=== PATIENT | female | born 1970 | race Caucasian/White ===

== ENCOUNTER → 2016-08-28 | Outpatient (CLI) | payer OTHER ==
[~2016-08-28] MED LIST: ATV1HP; BUPR-269 PO; CHOL100027 PO; ENOX40IN SQ; LEVO100T PO; LEVO125T4 PO; LORA-741 PO; PARO1TAB29 PO; PRED20TA PO; WARF-246 PO; WARF-280 PO; WARF5TAB7 PO; WARF6TAB5 PO; ZOLP10TA6 PO; ZOLP5TAB PO
--- NOTE | 2016-08-28 11:25 | DIAGNOSTIC IMAGING REPORT ---
RIGHT LOWER EXTREMITY VENOUS DOPPLER HISTORY: I83.10 Varicose veins with inflammation right leg Right COMPARISON STUDY: None. FINDINGS: Linear echogenic stranding within the right popliteal vein consistent with nonocclusive chronic thrombus. Otherwise, the remaining deep venous structures within the right lower extremity are patent. IMPRESSION: Nonocclusive chronic thrombus within the right popliteal vein. No acute DVT within the right lower extremity Electronically signed by: Brandt Bermudez M.D. 08/28/2016 11:24 AM Dictated Date/Time: 08/28/2016 11:23 AM
== END | disposition home or self-care (01) ==
LOC: C.ULTRBC 10:44
PROVIDERS: ATTEND Internal Medicine Geriatric Medicine
DX: I83.10 Varicose veins of unspecified lower extremity with inflammation (principal); I82.531 Chronic embolism and thrombosis of right popliteal vein

== ENCOUNTER → 2016-09-06 | Outpatient (CLI) | payer OTHER | END | disposition home or self-care (01) | LOC: C.PATHSPEC 17:00 | PROVIDERS: ATTEND Plastic Surgery | DX: L72.0 Epidermal cyst (principal) ==

== ENCOUNTER → 2016-09-14 | Outpatient (CLI) | payer OTHER ==
[~2016-09-14] MED LIST changes: -LEVO125T4 PO; +LEVO125T5 PO; +TAMS0.4C38 PO
== END | disposition home or self-care (01) ==
LOC: C.PATHSPEC 17:19
PROVIDERS: ATTEND Plastic Surgery
DX: L90.5 Scar conditions and fibrosis of skin (principal)

== ENCOUNTER → 2016-11-13 | Outpatient (CLI) | payer OTHER ==
--- NOTE | 2016-11-13 13:06 | DIAGNOSTIC IMAGING REPORT ---
RIGHT LOWER EXTREMITY VENOUS DOPPLER CLINICAL HISTORY: Follow up study. Deep venous thrombus. COMPARISON STUDY: Right lower extremity venous Doppler August 28, 2016. TECHNIQUE: Sonography of the deep venous system of the right lower extremity was performed. Compression and augmentation were evaluated. FINDINGS: There is linear echogenic material within the right femoral and popliteal veins. In addition, there is wall thickening of the right popliteal vein. These findings appear increased since exam of August 28, 2016 and are age indeterminate. No expanded vessels are present. IMPRESSION: 1. Age indeterminate deep venous thrombus within the right popliteal vein which appears increased since exam of August 28, 2016 and therefore may reflect minimal interval thrombus formation. 2. Increase in extent in linear echogenic material within the right deep venous system. Although this appears chronic, the extent has increased since exam of August 28, 2016. Electronically signed by: Jim Ansari M.D. 11/13/2016 1:05 PM Dictated Date/Time: 11/13/2016 12:57 PM
== END | disposition home or self-care (01) ==
LOC: C.ULTRBC 12:06
PROVIDERS: ATTEND Physician Assistant Medical
DX: I82.501 Chronic embolism and thrombosis of unspecified deep veins of right lower extremity (principal)

== ENCOUNTER → 2016-11-27 | Outpatient (CLI) | payer OTHER ==
[~2016-11-27] MED LIST changes: -BUPR-269 PO; -LEVO125T5 PO; -PARO1TAB29 PO
--- NOTE | 2016-11-27 14:19 | DIAGNOSTIC IMAGING REPORT ---
LEFT HUMERUS MIN 2 VIEWS ROUTINE CLINICAL HISTORY: M79.603 Arm [id number] pain COMPARISON: None. DISCUSSION: The bones and joint spaces appear intact. There is no evidence of fracture, dislocation or bony disease. There is no evidence for soft tissue swelling. IMPRESSION: Negative study. Electronically signed by: Ramiro Dukes M.D. 11/27/2016 2:18 PM Dictated Date/Time: 11/27/2016 2:16 PM
--- NOTE | 2016-11-27 14:27 | DIAGNOSTIC IMAGING REPORT ---
LEFT SHOULDER 3 VIEWS HISTORY: Left arm pain. COMPARISON: Chest 09/15/2013. FINDINGS: There is no fracture or dislocation. Soft tissues are unremarkable. The left clavicle is intact. Mild AC joint arthrosis. Mild cartilage space narrowing within the glenohumeral joint. Similar appearing small bony protrusions seen along the inferior glenoid and proximal/medial shaft of the left humerus. These are stable compared to the prior studies and likely represent small osteochondromas. The lesion within the proximal humeral shaft measures 2.2 x 0.9 cm. The glenoid lesion measures 6 mm. IMPRESSION: 1. No acute fracture or dislocation within the left shoulder. 2. Mild degenerative changes. 3. Similar-appearing bony protrusions at the inferior glenoid and proximal shaft of the left humerus consistent with osteochondromas. Electronically signed by: Brandt Bermudez M.D. 11/27/2016 2:25 PM Dictated Date/Time: 11/27/2016 2:23 PM
== END | disposition home or self-care (01) ==
LOC: C.RADBC 13:52
PROVIDERS: ATTEND Physician Assistant Medical
DX: M79.602 Pain in left arm (principal)

== ENCOUNTER → 2016-12-05 | Outpatient (CLI) | payer OTHER ==
[~2016-12-05] MED LIST changes: -TAMS0.4C38 PO
== END | disposition home or self-care (01) ==
LOC: C.PAPS 11:54
PROVIDERS: ATTEND Physician Assistant Medical
DX: Z00.00 Encounter for general adult medical examination without abnormal findings (principal); Z12.4 Encounter for screening for malignant neoplasm of cervix

== ENCOUNTER → 2016-12-06 | Outpatient (CLI) | payer OTHER ==
[~2016-12-06] MED LIST changes: +OPTIRAY 320 IV PRN
--- NOTE | 2016-12-06 12:10 | DIAGNOSTIC IMAGING REPORT ---
CHEST CTA for PULMONARY ARTERIES CT DOSE: 205.77 mGy.cm HISTORY: Chest pain. Dyspnea. TECHNIQUE: Multiaxial CT images of the chest were performed following the intravenous administration of contrast to evaluate the pulmonary arteries. Maximal intensity projection images were also obtained. COMPARISON STUDY: None. FINDINGS: There is a normal caliber thoracic aorta with no evidence for dissection. There is no evidence for pulmonary embolus. No pleural effusions. No pneumothorax. The liver and spleen are unremarkable. No mediastinal or hilar lymphadenopathy. The central airways are patent. The lungs are clear. Note is made of a 4 mm nodular density anterior aspect right lower lobe transaxial image 47. Follow-up per Fleischner criteria. Please refer to below summary of Fleischner criteria recommendations for follow-up of incidental CT nodules (Jorge Luis Reed, Guidelines for management of small pulmonary nodules detected on CT scans: A statement from the Fleischner Society, Radiology 237: [phone].) SOLID NODULES Solitary nodule size: <6 mm * low risk patients: no follow-up needed * high risk patients: optional CT at 12 months Solitary nodule size: 6-8 mm * low risk patients: follow-up at 6-12 months, then consider further follow-up at 18-24 months * high risk patients: initial follow-up CT at 6-12 months and then at 18-24 months if no change Solitary nodule size: >8 mm * either low or high risk patients - consider follow-up CT at 3 months, and/or CT-PET, and/or biopsy Multiple nodules size: <6 mm * low risk patients: no routine follow-up * high risk patients: optional CT at 12 months Multiple nodules size: 6-8 mm * low risk patients: follow-up at 3-6 months, then consider further follow-up at 18-24 months * high risk patients: follow-up at 3-6 months, then at 18-24 months if no change Multiple nodules size: >8 mm * low risk patients: follow-up at 3-6 months, then consider further follow-up at 18-24 months * high risk patients: follow-up at 3-6 months, then at 18-24 months if no change Note: newly detected indeterminate nodule in persons 35 years of age or older. * Low risk patients: minimal or absent history of smoking and/or other known risk factors * high risk patients: history of smoking or of other known risk factors (e.g. first degree relative with lung cancer, or exposure to asbestos, radon, uranium) * if a nodule up to 8 mm is partly solid or is ground glass further follow-up is required after 24 months to exclude possible slow growing adenocarcinoma ([place]) SUBSOIL NODULES Solitary pure ground-glass nodule * nodule size <6 mm - no CT follow-up required * nodule size >=6 mm - follow-up CT at 6-12 months, then every 2 years until 5 years Solitary part-solid nodule * nodule size <6 mm - no CT follow-up required * nodule size >=6 mm - follow-up CT at 3-6 months. If unchanged, and solid component remains <6 mm, then annual follow-up for 5 years Multiple subsolid nodules * nodule size <6 mm - follow-up CT at 3-6 months, consider further follow-up at 2 and 4 years if stable * nodule size >=6 mm - follow-up CT at 3-6 months, subsequent management based on the most suspicious nodule(s) IMPRESSION: No evidence for pulmonary embolus. Electronically signed by: Ramiro Dukes M.D. 12/06/2016 12:09 PM Dictated Date/Time: 12/06/2016 12:04 PM
== END | disposition home or self-care (01) ==
LOC: C.CTS 11:15
PROVIDERS: ATTEND Physician Assistant Medical
DX: R07.9 Chest pain, unspecified (principal); E03.9 Hypothyroidism, unspecified

== ENCOUNTER 2017-02-06 17:09 | Emergency (ER) | payer OTHER ==
[~2017-02-06] VITALS: Ht 162.6 cm; Wt 54.7 kg
[~2017-02-06 17:09] MED LIST changes: -ENOX40IN SQ; -LORA-741 PO; -OPTIRAY 320 IV PRN; -PRED20TA PO; -WARF-246 PO; -WARF6TAB5 PO; -ZOLP10TA6 PO
[2017-02-06 17:17] VITALS: Ht 162.6 cm; Wt 54.7 kg
--- NOTE | 2017-02-06 18:55 | EMERGENCY ROOM VISIT NOTE ---
History Report prepared by Jaskaran: Erasto Joseph Under the Supervision of: Dr. Jose Alfredo Nieto M.D. First contact with patient: 18:34 Chief Complaint: LEG PAIN,LEG INJURY Stated Complaint: PAIN IN R LEG POSSIBLE BLOOD CLOT History of Present Illness The patient is a 47 year old female who presents to the Emergency Room with complaints of worsening, lower, right leg pain beginning three days ago. The patient states that she has a history of a blood clot 3 months ago. She reports that she just got back from [place], and is now experiencing right leg pain. The patient notes that her pain is in the same location as her previous blood clot and radiates slightly higher. She states that she has been on Coumadin and has not reached her correct dosage yet. The patient reports that she also has a history of MS, and she does not know if it is an MS flare or a blood clot. She notes that she experiences intermittent nausea, lightheadedness, and dizziness. The patient denies chest pain and shortness of breath. She states she has not had pain before her previous blood clot. Source of History: patient Onset: 3 days ago Position: leg (right) Timing: worsening Associated Symptoms: + nausea (intermittent), No chest pain, No SOB Note: Associated symptoms: Intermittent lightheadedness, intermittent dizziness Review of Systems See HPI for pertinent positives & negatives. A total of 10 systems reviewed and were otherwise negative. Past Medical & Surgical Medical Problems: (1) Acute Pancreatitis (2) Anemia (3) Depressive Disorder Nec (4) Hypothyroidism (5) Late Effect Of Ruffin Nec (6) Multiple Sclerosis (7) Scar & Fibrosis Of Skin Family History Patient reports no known family medical history. Social History Smoking Status: Never Smoker Drug Use: none Marital Status: Occupation Status: disabled Current/Historical Medications Scheduled Cholecalciferol (Vitamin D 1000 Unit), 4,000 INTER.UNIT PO DAILY Levothyroxine Sodium (Synthroid), 100 MCG PO DAILY Warfarin Sodium (Warfarin Sodium), 5 MG PO [id number] Warfarin Sodium (Warfarin Sodium), 7.5 MG PO WK Zolpidem Tartrate (Zolpidem Tartrate), 10 MG PO HS Scheduled PRN Lorazepam (Ativan), 0.5 MG PO DAILY PRN for Anxiety Allergies Coded Allergies: Dexamethasone (Verified Allergy, Unknown, UNKNOWN, 9/29/14) Physical Exam Vital Signs Date Time Temp Pulse Resp B/P (MAP) Pulse Ox O2 Delivery O2 Flow Rate FiO2 02/06/17 21:51 36.5 63 18 150/89 99 02/06/17 21:50 18 150/89 99 Room Air 02/06/17 19:49 99 Room Air 02/06/17 19:47 99 Room Air 02/06/17 17:17 36.5 63 18 149/76 98 Room Air Physical Exam GENERAL: Patient is a healthy-appearing well-nourished 47 year old female HEAD: Normocephalic atraumatic EYES: Ocular movements intact pupils equal and react to light OROPHARYNX mucous membranes are moist no exudates present no erythema or edema present NECK: Supple no nuchal rigidity CHEST: Good equal expansion LUNGS: Clear and equal to auscultation CARDIAC: Normal S1 and S2 ABDOMEN: Soft nontender no guarding BACK: No CVA tenderness EXTREMITIES: No pain upon palpation normal muscle strength in all groups no clubbing cyanosis or edema NEURO: Patient is following commands and answering questions appropriately. Alert and oriented x3 Cranial Nerves 2-12 grossly intact Medical Decision & Procedures ER Provider Diagnostic Interpretation: Radiology results as stated below per my review and radiologist interpretation: ULTRASOUND RIGHT VENOUS DOPP LOWER EXT UNILAT CLINICAL HISTORY: Right lower extremity pain COMPARISON STUDY: 11/13/2016 FINDINGS: There is chronic fibrin stranding within the common femoral posterior tibial and peroneal veins. There is fibrin stranding within the distal superficial femoral and popliteal veins. The distal superficial femoral and popliteal veins are not fully compressible. The appearance favors chronic DVT. Short-term follow-up would seem prudent to exclude thrombus propagation. IMPRESSION: 1. Moderately extensive chronic fibrin stranding. 2. Incompletely compressible distal superficial femoral and popliteal veins. The findings likely represent chronic nonocclusive thrombus. 3. Short-term follow-up would seem prudent to exclude thrombus propagation Electronically signed by: Levi Bryant M.D. 02/06/2017 9:10 PM Dictated Date/Time: 02/06/2017 9:06 PM CHEST ONE VIEW PORTABLE CLINICAL HISTORY: Chest pain. COMPARISON STUDY: Chest CT December 06, 2016. FINDINGS: Moderate S-shaped scoliosis of the thoracolumbar spine is incidentally noted. A bony excrescence arising from the proximal medial shaft of the left humerus is benign. Pulmonary vascularity is normal. No pneumothorax or pleural effusion is identified. There is no consolidation to suggest pneumonia. IMPRESSION: No acute cardiopulmonary findings. Electronically signed by: Jim Ansari M.D. 02/06/2017 7:20 PM Dictated Date/Time: 02/06/2017 7:19 PM Laboratory Results 02/06/17 20:28 Test 02/06/17 20:28 Prothrombin Time 21.5 SECONDS (9.0-12.0) Prothromb Time International Ratio 2.0 (0.9-1.1) Anion Gap 7.0 mmol/L (3-11) Est Creatinine Clear Calc Drug Dose 80.3 ml/min Estimated GFR () 111.0 Estimated GFR (Non- 95.8 BUN/Creatinine Ratio 20.8 (10-20) Calcium Level 8.9 mg/dl (8.5-10.1) Total Bilirubin 0.7 mg/dl (0.2-1) Direct Bilirubin 0.2 mg/dl (0-0.2) Aspartate Amino Transf (AST/SGOT) 33 U/L (15-37) Alanine Aminotransferase (ALT/SGPT) 54 U/L (12-78) Alkaline Phosphatase 65 U/L (45-117) Total Creatine Kinase 113 U/L (26-192) Creatine Kinase MB 0.8 ng/ml (0.5-3.6) Creatine Kinase MB Ratio 0.7 (0-3.0) Troponin I < 0.015 ng/ml (0-0.045) Total Protein 7.4 gm/dl (6.4-8.2) Albumin 3.8 gm/dl (3.4-5.0) Lipase 540 U/L (73-393) Labs reviewed by ED physician. ECG Indication: other (right leg pain) Rate (beats per minute): 57 Rhythm: sinus bradycardia Findings: no acute ischemic change, no ectopy ED Course 1836: Past medical records reviewed. The patient was evaluated in room C12B. A complete history and physical examination was performed. 2137: Upon reexamination the patient is feeling better. I discussed results and treatment plan with the patient. She verbalizes agreement and understanding. The patient is ready for discharge. Medical Decision Differential diagnosis: Etiologies such as cardiac ischemia, aortic dissection, pulmonary embolism, pneumonia, pneumothorax, musculoskeletal, infections, pericarditis, myocarditis , esophageal rupture, gastrointestinal, as well as others were entertained. This is a 47-year-old female who presents emergency department complaining of right lower extremity pain. The patient is on Coumadin for blood clots I will note her INR is 2.0. The patient was sent for a duplex of the right lower extremity. It did not show any evidence of acute DVT and only shows a chronic DVT didn't appear similar to the previous study in August. The 2 studies were combined and I discussed these findings with the patient in the room. I strongly recommended to the patient that she received a repeat ultrasound in 1 week. I also stressed the need for follow-up with her primary care physician. Patient was in agreement with the treatment plan. Impression Primary Impression: Leg pain, right Scribe Attestation The scribe's documentation has been prepared under my direction and personally reviewed by me in its entirety. I confirm that the note above accurately reflects all work, treatment, procedures, and medical decision making performed by me. Departure Information Dispostion Home / Self-Care Referrals Rickey Roth M.D. (PCP) Alissa Guzman,P.A. Forms HOME CARE DOCUMENTATION FORM, IMPORTANT VISIT INFORMATION Patient Instructions My [facility] Additional Instructions Follow up with Dr Roth for repeat US in one week You have been examined and treated today on an emergency basis only. This is not a substitute for, or an effort to provide, complete comprehensive medical care. It is impossible to recognize and treat all injuries or illnesses in a single emergency department visit. It is therefore important that you follow up closely with Dr Guzman. Call as soon as possible for an appointment. Thank you for your time and consideration. I look forward to speaking with you again soon. Please don't hesitate to call us if you have any questions.
[2017-02-06] MEDS ORDERED: ZOLP10TA6 PO (19:17)
[2017-02-06] MEDS ORDERED: WARF-246 PO ×2 (19:17)
[2017-02-06] MEDS ORDERED: LORA-741 PO (19:17)
--- NOTE | 2017-02-06 19:21 | DIAGNOSTIC IMAGING REPORT ---
CHEST ONE VIEW PORTABLE CLINICAL HISTORY: Chest pain. COMPARISON STUDY: Chest CT December 06, 2016. FINDINGS: Moderate S-shaped scoliosis of the thoracolumbar spine is incidentally noted. A bony excrescence arising from the proximal medial shaft of the left humerus is benign. Pulmonary vascularity is normal. No pneumothorax or pleural effusion is identified. There is no consolidation to suggest pneumonia. IMPRESSION: No acute cardiopulmonary findings. Electronically signed by: Jim Ansari M.D. 02/06/2017 7:20 PM Dictated Date/Time: 02/06/2017 7:19 PM
[2017-02-06 19:49] VITALS: O2SAT 99
[2017-02-06 20:46] LABS: PROTHROMBIN TIME (PATIENT) 21.5 SECONDS (9.0-12.0)
[2017-02-06 21:03] LABS: ALT/SGPT 54 U/L (12-78); BLOOD UREA NITROGEN 15 mg/dl (7-18); BUN/CREATININE RATIO 20.8 (10-20); CALCIUM 8.9 mg/dl (8.5-10.1); CARBON DIOXIDE 27 mmol/L (21-32); CHLORIDE 109 mmol/L (98-107); CREATININE 0.74 mg/dl (0.60-1.20); GLUCOSE 98 mg/dl (70-99); POTASSIUM 3.8 mmol/L (3.5-5.1); SODIUM 143 mmol/L (136-145)
[2017-02-06 21:08] LABS: ALKALINE PHOSPHATASE 65 U/L (45-117); AST/SGOT 33 U/L (15-37); CKMB/CK RATIO 0.7 (0-3.0)
--- NOTE | 2017-02-06 21:12 | DIAGNOSTIC IMAGING REPORT ---
ULTRASOUND RIGHT VENOUS DOPP LOWER EXT UNILAT CLINICAL HISTORY: Right lower extremity pain COMPARISON STUDY: 11/13/2016 FINDINGS: There is chronic fibrin stranding within the common femoral posterior tibial and peroneal veins. There is fibrin stranding within the distal superficial femoral and popliteal veins. The distal superficial femoral and popliteal veins are not fully compressible. The appearance favors chronic DVT. Short-term follow-up would seem prudent to exclude thrombus propagation. IMPRESSION: 1. Moderately extensive chronic fibrin stranding. 2. Incompletely compressible distal superficial femoral and popliteal veins. The findings likely represent chronic nonocclusive thrombus. 3. Short-term follow-up would seem prudent to exclude thrombus propagation Electronically signed by: Levi Bryant M.D. 02/06/2017 9:10 PM Dictated Date/Time: 02/06/2017 9:06 PM
[2017-02-06 21:51] VITALS: BP 150/89; PULSE 63; TEMP 36.5; O2SAT 99
[2017-02-23] MEDS ORDERED: PRED20TA PO (09:57)
== END 2017-02-06 21:52 | disposition home or self-care (01) ==
LOC: C.EDB 17:11 → C.EDC 21:52
DX: M79.604 Pain in right leg (principal); Z86.718 Personal history of other venous thrombosis and embolism; G35 Multiple sclerosis; F32.9 Major depressive disorder, single episode, unspecified; D64.9 Anemia, unspecified; K85.90 Acute pancreatitis without necrosis or infection, unspecified; Z79.01 Long term (current) use of anticoagulants; Z79.899 Other long term (current) drug therapy

== ENCOUNTER → 2017-02-08 | Outpatient (CLI) | payer OTHER ==
[~2017-02-08] MED LIST changes: -ATV1HP; +LORA-741 PO; +PRED20TA PO; +WARF-246 PO; -WARF-280 PO; -WARF5TAB7 PO; +ZOLP10TA6 PO; -ZOLP5TAB PO
[2017-02-08 14:47] LABS: BASO % 0.5 %; BASO ABS # 0.03 K/uL (0-0.2); COMPLETE YES; EOS % 0.7 %; HEMATOCRIT 42.5 % (37-47); IG% 0.2 %; LYMPH % 28.1 %; LYMPH ABS # 1.58 K/uL (1.2-3.4); MEAN CORPUSCULAR HEMOGLOBIN 32.2 pg (25-34); MEAN CORPUSCULAR HGB CONC 34.6 g/dl (32-36); MEAN PLATELET VOLUME 9.9 fL (7.4-10.4); MONO % 11.6 %; NEUT % 58.9 %; PLATELET COUNT 206 K/uL (130-400); RED BLOOD COUNT 4.57 M/uL (4.2-5.4); WHITE BLOOD COUNT 5.62 K/uL (4.8-10.8)
[2017-02-08 14:54] LABS: ALT/SGPT 62 U/L (12-78); AMYLASE 74 U/L (25-115); BLOOD UREA NITROGEN 12 mg/dl (7-18); BUN/CREATININE RATIO 15.1 (10-20); CARBON DIOXIDE 28 mmol/L (21-32); CHLORIDE 107 mmol/L (98-107); CREATININE 0.79 mg/dl (0.60-1.20); GLUCOSE 83 mg/dl (70-99); POTASSIUM 3.8 mmol/L (3.5-5.1); SODIUM 141 mmol/L (136-145)
[2017-02-08 14:57] LABS: ALB/GLOB RATIO 1.1 (0.9-2); ALKALINE PHOSPHATASE 71 U/L (45-117); AST/SGOT 43 U/L (15-37)
== END | disposition home or self-care (01) ==
LOC: C.LAB1850 13:01
PROVIDERS: ATTEND Nurse Practitioner Adult Health
DX: R74.8 Abnormal levels of other serum enzymes (principal); Z87.19 Personal history of other diseases of the digestive system; R10.9 Unspecified abdominal pain

== ENCOUNTER → 2017-02-14 | Outpatient (CLI) | payer OTHER ==
--- NOTE | 2017-02-14 10:07 | DIAGNOSTIC IMAGING REPORT ---
RIGHT LOWER EXTREMITY VENOUS DOPPLER HISTORY: R LEG F/U CHRONIC DVT Right COMPARISON STUDY: Right leg venous Doppler 02/06/2017. FINDINGS: No acute change in the chronic fibrin stranding seen within the common femoral, superficial femoral, and popliteal veins. This is consistent with chronic DVT. No evidence for progression of thrombus to suggest acute DVT. As also mild chronic thrombus within the posterior tibial and peroneal veins. IMPRESSION: No change in the right lower extremity chronic nonocclusive DVT. No evidence for progression of thrombus to suggest acute DVT. Electronically signed by: Brandt Bermudez M.D. 02/14/2017 10:06 AM Dictated Date/Time: 02/14/2017 10:03 AM
== END | disposition home or self-care (01) ==
LOC: C.ULTRBC 09:19
PROVIDERS: ATTEND Nurse Practitioner Adult Health
DX: I82.501 Chronic embolism and thrombosis of unspecified deep veins of right lower extremity (principal)

== ENCOUNTER → 2017-02-16 | Outpatient (CLI) | payer OTHER ==
[~2017-02-16] MED LIST changes: +OPTIRAY 320 IV PRN
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
== END | disposition home or self-care (01) ==
LOC: C.CTS 12:25
PROVIDERS: ATTEND Physician Assistant
DX: R74.8 Abnormal levels of other serum enzymes (principal); R10.9 Unspecified abdominal pain

== ENCOUNTER → 2017-03-01 | Outpatient (CLI) | payer OTHER ==
[~2017-03-01] MED LIST changes: -OPTIRAY 320 IV PRN
== END | disposition home or self-care (01) ==
LOC: C.LABSPEC 17:31
PROVIDERS: ATTEND Urology
DX: F41.9 Anxiety disorder, unspecified (principal); R63.4 Abnormal weight loss; M79.605 Pain in left leg; R93.8 Abnormal findings on diagnostic imaging of other specified body structures

== ENCOUNTER → 2017-04-12 | Outpatient (CLI) | payer OTHER ==
[~2017-04-12] MED LIST changes: -PRED20TA PO; +TAMS0.4C38 PO
--- NOTE | 2017-04-12 10:47 | DIAGNOSTIC IMAGING REPORT ---
VENOUS DOPP LOWER EXT UNILAT HISTORY: 47 years-old Female I82.501 Leg DVT (deep venous thromboembolism), chronic, rightrig chronic DVT of the common femoral, superficial femoral and popliteal veins on the right COMPARISON: Duplex study 02/14/2017 TECHNIQUE: Multiple real-time sonogram images of the right lower extremity deep venous system were obtained assessing grayscale appearance, color and spectral flow FINDINGS: There is normal compressibility, flow, augmentation and phasicity of the right lower extremity deep venous system. Persistent stranding is noted within the common femoral, superficial femoral and popliteal veins compatible with chronic DVT without occlusive thrombus. IMPRESSION: 1. No sonographic evidence of acute occlusive deep venous thrombosis. 2. Chronic fibrin stranding as above appears unchanged. The above report was generated using voice recognition software. It may contain grammatical, syntax or spelling errors. Electronically signed by: David Gardner M.D. 04/12/2017 10:46 AM Dictated Date/Time: 04/12/2017 10:43 AM
== END | disposition home or self-care (01) ==
LOC: C.ULTRBC 10:05
PROVIDERS: ATTEND Physician Assistant Medical
DX: I82.501 Chronic embolism and thrombosis of unspecified deep veins of right lower extremity (principal)

== ENCOUNTER → 2017-04-20 | Outpatient (CLI) | payer OTHER ==
--- NOTE | 2017-04-20 09:10 | Discharge Instructions ---
Discharge Instructions Procedure Procedure Date: Apr 20, 2017. Reason for visit: Bilateral Calcs. Discharge Discharge Date: Apr 20, 2017. Discharge Diagnosis: status post breast biopsy Instructions Activity Recommendations: Additional Limitations (see below) Return to School/Work: no limitations Recommended Home Diet: No Limitations Provider Instructions: ACTIVITY RECOMMENDATIONS: * No lifting, pushing, pulling or exercising the affected side for three days. RETURN TO SCHOOL/WORK: * You may return to work/school after the procedure, but do not perform any strenuous activities for 24 to 48 hours. MEDICATIONS: * Tylenol (two 325 mg) every four to six hours if needed for mild pain (if not allergic to Tylenol). DIET: * Resume previous diet. SPECIAL CARE INSTRUCTIONS: * Keep biopsy site dry for 24 hours. May shower after 24 hours, but do not soak (bathe) incision. * May remove Tegaderm (plastic patch) tomorrow AFTER showering. * Leave the steri-strips on for one week. Allow the steri-strips to fall off by themselves. If not off after one week, you may remove them. You may place a Bandaid crosswise over the strips, if desired. * Apply ice 10 minutes on and 10 minutes off as needed. * Wear a bra at bedtime to sleep more comfortably for 2-3 days. * Your referring physician should have the results after approximately 5 to 7 business days. * Call for unusual bleeding, fever, drainage, etc or if you have any questions call during normal business hours or after hours call Dr Perkins, . FOLLOW UP VISIT: Follow-up with Referring Physician as scheduled. Allergies Coded Allergies: Dexamethasone (Verified Allergy, Unknown, UNKNOWN, 03/09/14) Schuyler Lenz Recommendations: Call your doctor if: * Temperature above 101 degrees * Pain not relieved by pain medicine ordered * There is increased drainage or redness from any incision * You have any unanswered questions or concerns. Your Doctors Instructions noted above were prepared by provider Camelia Perkins. Patient Signature Section: Patient Instructions Signature Page Melody Chun Patient (or Guardian) Signature/Date: I have read and understand the instructions given to me by my caregivers. Caregiver/RN/Doctor Signature/Date: The above-named patient and/or guardian has received patient instructions on this date. + Original Patient Signature Page (only) stays with chart. Please make copy for patient.
--- NOTE | 2017-04-20 15:37 | MAMMOGRAPHY REPORT ---
STEREOTACTIC GUIDED BIOPSY RIGHT BREAST: 04/20/2017 CLINICAL HISTORY: Indeterminate calcifications in the right upper outer quadrant. PATIENT CONSENT: The procedure, risks, benefits, and alternatives of stereotactic biopsy with clip pl acement were discussed with the patient, and verbal and written consent was obtained. The patient re ports she self-discontinued her Coumadin on Sunday. A timeout was performed immediately prior to the procedure. PROCEDURE DESCRIPTION: With stereotactic guidance, aseptic technique, and lidocaine as a local anesth etic (approximately 2 mL 1% lidocaine to anesthetize the skin and approximately 10 mL total 1% lidoca ine with epinephrine to anesthetize the deeper tissues), the calcifications of concern in the right u pper outer quadrant were sampled multiple times with a 9-gauge vacuum-assisted biopsy needle ([employer]). The path of approach was lateral. The specimen radiograph demonstrates calcifications to be present in the samples; the samples containing calcifications (labeled "A") were fro m the samples without calcifications (labeled "B"). A metallic marker clip was placed at the biopsy site. This was confirmed on postprocedure mammograms. Direct pressure was applied at the biopsy sit e and hemostasis was readily achieved. The patient tolerated the procedure without complication. Sh e was given wound care instructions. COMPARISON: Comparison is made to exams dated: 04/11/2017 mammogram, 04/06/2017 mammogram - [facility], 03/20/2016 mammogram, 03/16/2015 mammogram, 03/08/2015 mammogram, and 03/05/2015 ma mmogram - [facility]. IMPRESSION: STEREOTACTIC GUIDED BIOPSY Stereotactic biopsy of indeterminate calcifications in the right upper outer quadrant, with clip plac ement. The patient will receive pathology results from her referring provider. Camelia Perkins M.D. ah/:04/20/2017 09:13:29 Attending Technologist: Yared DONALDSON(R)(M), [facility] Regulator Pin Inserter: Anastacia Cueva, [facility]
--- NOTE | 2017-04-20 15:37 | MAMMOGRAPHY REPORT ---
STEREOTACTIC GUIDED BIOPSY LEFT BREAST: 04/20/2017 CLINICAL HISTORY: Indeterminate calcifications in the left upper outer quadrant. PATIENT CONSENT: The procedure, risks, benefits, and alternatives of stereotactic biopsy with clip pl acement were discussed with the patient, and verbal and written consent was obtained. A timeout was performed immediately prior to the procedure. PROCEDURE DESCRIPTION: With stereotactic guidance, aseptic technique, and lidocaine as a local anesth etic (1% lidocaine to anesthetize the skin and 1% lidocaine with epinephrine to anesthetize the deepe r tissues), the area of concern was sampled multiple times with a 9-gauge vacuum-assisted biopsy need le ([employer] Eviva petite). The calcifications had to be retargeted twice during the procedure. The pa th of approach was lateral. The specimen radiograph demonstrates faint calcifications to be present in the samples. A metallic marker clip was placed at the biopsy site. This was confirmed on postpro cedure mammograms. Direct pressure was applied at the biopsy site and hemostasis was readily achieve d. The patient tolerated the procedure without complication. She was given wound care instructions. COMPARISON: Comparison is made to exams dated: 04/11/2017 mammogram, 04/06/2017 mammogram - [facility], 03/20/2016 mammogram, 03/16/2015 mammogram, 03/08/2015 mammogram, and 03/05/2015 ma mmogram - [facility]. IMPRESSION: STEREOTACTIC GUIDED BIOPSY Stereotactic biopsy of indeterminate calcifications in the left upper outer quadrant, with clip place ment. The patient will receive pathology results from her referring provider. Camelia Perkins M.D. ah/:04/20/2017 11:41:18 Attending Technologist: Yared DONALDSON(R)(M), [facility] Warehouse Processor: Anastacia Cueva, [facility]
--- NOTE | 2017-04-20 15:38 | MAMMOGRAPHY REPORT ---
BILATERAL DIGITAL DIAGNOSTIC MAMMOGRAM: 04/20/2017 CLINICAL HISTORY: Status post bilateral stereotactic biopsy. TECHNIQUE: Postprocedural bilateral CC and LM views were obtained. COMPARISON: Comparison is made to exams dated: 04/11/2017 mammogram, 04/06/2017 mammogram - [facility], 03/20/2016 mammogram, 03/16/2015 mammogram, 03/08/2015 mammogram, and 03/05/2015 ma mmogram - [facility]. BREAST COMPOSITION: There are scattered areas of fibroglandular density in both breasts. FINDINGS: A new biopsy marker clip is seen in the right upper outer quadrant status post stereotacti c biopsy of right upper outer quadrant calcifications. A biopsy marker clip is seen within the left upper outer quadrant status post stereotactic biopsy of left upper outer quadrant calcifications; the re is possible mild medial migration of the biopsy marker clip from the biopsy site by approximately 2 cm, likely due to accordion effect. No significant postbiopsy hematoma is seen. IMPRESSION: POST PROCEDURE IMAGING FOR MARKER PLACEMENT New biopsy marker clips status post bilateral stereotactic biopsy. Pathology results are pending. Approximately 10% of breast cancers are not detected with mammography. A negative mammographic report should not delay biopsy if a clinically suggestive mass is present. Camelia Perkins M.D. ah/:04/20/2017 11:44:45 Fry Cook: Anastacia Cueva, [facility] BI-RADS Code: Post Procedure Imaging For Marker Placement
== END | disposition home or self-care (01) ==
LOC: C.MAMM 08:28
PROVIDERS: ATTEND Physician Assistant Medical
DX: R92.0 Mammographic microcalcification found on diagnostic imaging of breast (principal)

== ENCOUNTER → 2017-05-21 | Outpatient (CLI) | payer OTHER ==
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
== END | disposition home or self-care (01) ==
LOC: C.RADBC 08:50
PROVIDERS: ATTEND Internal Medicine
DX: M54.5 Low back pain (principal)